=== PATIENT | female | born 1950 | race Caucasian/White ===

== ENCOUNTER → 2016-05-12 | Outpatient (CLI) | payer MEDICARE, OTHER ==
--- NOTE | ~2016-05-12 | ESTC ---
Cardiac Perfusion Imaging Demographics Patient Name KAYLEIGH Hardin Gender Female Patient Number [id number] Race Visit Number [id number] Ethnicity Corporate ID Room Number Accession Number [id number] Height Date of 1950 Weight Age 66 year(s) BSA Referring Ainsley Gallardo MD BMI Physician Heath Muñoz APRN Interpreting Ainsley Gallardo MD Date of study 05/12/2016 Physician Supervising /PAULO COLEY Technologist BOTTLE FILLER Ordering Physician Ainsley Gallardo MD Stress Vrtiska Karsten RVT, solar lab technician RDCS Stress ECG Reading Octavio Cardenas Nurse Raymond Sanchez Physician BOTTLE FILLER Procedure Procedure Type: Nuclear Stress Test:Cardiolite Stress Test Procedure Start time: 05/12/2016 07:15 Indications: Dyspnea. Risk Factors The patient risk factors include:obesity. Conclusions Summary Cardiolite SPECT images demonstrate an distal anterior and anteroseptal fixed defect. No evidence of inducible reversible defect noted. Upper limits normal TID. Gated images demonstrate mild inferior wall hypokinesis. LVEF is 63% Stress Protocols Resting ECG RSR without ST or T wave changes Resting HR:87 bpm Resting BP:181/79 mmHg Pre-stress physical exam: Patient assessed by LIZBET Lemons APRN prior to testing. Stress Protocol:Pharmacologic Peak HR:108 bpm HR response: Appropriate Peak BP:162/73 mmHg BP response: Appropriate Predicted HR: 152 bpm HR/BP product:75060 % of predicted HR: 71 Reason for termination:Infusion complete ECG Findings No ECG changes suggestive of ischemia. Arrhythmias No rhythm abnormality. Symptoms Flushed, Fullness in head. Stress Interpretation Appropriate hemodynamic response to Lexiscan. No significant ST-T wave changes with Lexiscan. ECG portion is negative for ischemia by diagnostic criteria. Stress supervision and interpretation provided by Bryanna Cunningham APRN . Imaging Results Summed scores - Summed stress score: 27 - Summed rest score: 24 - Summed difference score: 3 Stress ejection Ejection fraction:63 % EDV :95 ml ESV :35 ml Stroke volume :60 ml LV mass :131 gr Imaging Protocols Rest Stress Isotope:Tc99m Sestamibi IV Isotope: Tc99m Sestamibi IV Isotope dose:15.2 mCi Isotope dose:46.5 mCi Date:05/12/2016 07:00 Date:05/12/2016 08:32 Technique: SPECT Technique: Gated Supine SPECT Supine Scan Time:45-60 minutes post Scan Time:45-60 minutes post injection injection Procedure Medications - Regadenoson (Lexiscan) 0.4 mg IV over 10-15 sec. I.V. 0.4 mg. Medical History Admission Data Admission date: 05/12/2016 Admission Time: 06:42 Hospital Status: Outpatient. Signatures dtt: Sami Schmitz (cardio) dtd: 05/12/16 0715 Physician Self Edit
== END | disposition disaster alternative care site (69) ==
LOC: GRAD 05-07 07:30
DX: R06.09 Other forms of dyspnea (principal); R94.39 Abnormal result of other cardiovascular function study; E66.9 Obesity, unspecified
CPT/HCPCS: A9500; J2785